=== PATIENT | female | born 1945 | race Native Hawaiian/Other Pacific Islander ===

== ENCOUNTER 2024-09-18 15:12 | Emergency (ER) | payer MEDICARE, OTHER ==
[2024-09-18 15:35] VITALS: BP 184/85; PULSE 95
[2024-09-18] MEDS ORDERED: Sodium Chloride 0.9% 1,000 ML IV ONE (15:51)
[2024-09-18] MEDS: Ketorolac 30 MG/ML SDV IM ONE (16:56)
[2024-09-18] MEDS: Cyclobenzaprine 10 MG Tab PO ONE (16:56)
== END 2024-09-18 17:32 | disposition home or self-care (01) ==
LOC: JP.ED 15:12
DX: S29.002A Unspecified injury of muscle and tendon of back wall of thorax, initial encounter (principal); I10 Essential (primary) hypertension; E78.00 Pure hypercholesterolemia, unspecified; E66.9 Obesity, unspecified; E11.9 Type 2 diabetes mellitus without complications; Z88.2 Allergy status to sulfonamides; Z88.8 Allergy status to other drugs, medicaments and biological substances; Z79.84 Long term (current) use of oral hypoglycemic drugs; Z79.82 Long term (current) use of aspirin; Z79.899 Other long term (current) drug therapy; X58.XXXA Exposure to other specified factors, initial encounter
CPT/HCPCS: 96372; 99283; A9270; J1885